=== PATIENT | male | born 1990 | race Caucasian/White ===

== ENCOUNTER 2016-09-17 20:43 | Emergency (ER) | payer OTHER ==
[2016-09-17 20:56] VITALS: BP 146/93; PULSE 108; TEMP 98.3; BMI 30.7
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
[2016-09-17] MEDS ORDERED: KETOROLAC TROMETHAMINE 60 MG/2 ML VIAL IM ONE (22:04)
[2016-09-17] MEDS ORDERED: KETOROLAC TROMETHAMINE 60 MG/2 ML VIAL ONE (22:05)
== END 2016-09-17 22:24 | disposition home or self-care (01) ==
LOC: FER 20:43
PROC: 3E0233Z Introduction of Anti-inflammatory into Muscle, Percutaneous Approach (ICD-10-PCS; principal; 2016-09-17)
DX: S46.912A Strain of unspecified muscle, fascia and tendon at shoulder and upper arm level, left arm, initial encounter (principal); V43.52XA Car driver injured in collision with other type car in traffic accident, initial encounter; Y93.89 Activity, other specified; Y92.410 Unspecified street and highway as the place of occurrence of the external cause
CPT/HCPCS: 73030-TC-LT; 96372; 99281-25

== ENCOUNTER 2016-10-31 22:11 | Emergency (ER) | payer SELFPAY ==
--- NOTE | 2016-10-31 22:32 | PDOC ---
*Physical Exam - Physical Exam Comments: 10/31/16 22:27 S/P I&D YESTERDAY TOLD NEEDED TO REMOVE THE PACKING AND REPACK IT AT HOME. NO OTHER INSTRUCTIONS OR PRESCRIPTIONS. NO FEVER. STILL SOME PAIN WOUND CLEAN PACKING WHITE W/ MINIMAL BLOOD. WILL SEND BACK TO PCP 2/ UNCLEAR PLAN NO NEED TO REMOVE PACKING 12 H AFTER I&D General Appearance: Yes: Nourished, Appropriately Dressed. No: Apparent Distress Respiratory/Chest: negative: Respiratory Distress Musculoskeletal: positive: Normal Inspection Integumentary: positive: Normal Color, Other (PILONYDAL AREA INCISION AND PACKING NO ERYTHEMA ) Neurologic: positive: Fully Oriented, Alert, Normal Mood/Affect, Normal Response , Motor Strength 5/ *DC/Admit/Observation/Transfer Diagnosis at time of Disposition: Status post incision and drainage - Discharge Dispostion Disposition: HOME Condition at time of disposition: Good - Patient Instructions Additional Instructions: KEEP AREA DRY TYLENOL FOR PAIN SEE YOUR DOCTOR TOMORROW FOR CLARIFICATION OF PLAN
[2016-10-31 22:38] VITALS: BP 127/84; PULSE 103; TEMP 98.2; BMI 33.5
== END 2016-10-31 22:44 | disposition home or self-care (01) ==
LOC: FER 22:11
DX: Z48.01 Encounter for change or removal of surgical wound dressing (principal)
CPT/HCPCS: 99281-25